=== PATIENT | male | born 1995 | race Two or more races ===

== ENCOUNTER 2024-12-27 07:32 | Inpatient (IN) ==
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
[2024-12-27] MEDS: SODIUM CHLORIDE 0.9% 1,000 ML IV ONE (08:17)
[2024-12-27 08:31] LABS: Basophils # (auto) 0.04 K/uL (0.00-0.20); Basophils % (auto) 0.7 %; Eosinophils # (auto) 0.12 K/uL (0.00-0.50); Eosinophils % (auto) 2.2 %; Hematocrit (blood only) 38.7 % (42.0-52.0); Hemoglobin 13.1 g/dl (14.0-18.0); Immature Granulocytes # (auto) 0.02 K/uL (0.01-0.20); Immature Granulocytes % (auto) 0.4 %; Lymphocytes # (auto) 0.71 K/uL (1.20-3.40); Lymphocytes % (auto) 12.9 %; Mean Corpuscular Hemoglobin 30.7 pg (25.0-34.0); Mean Corpuscular Hgb Conc 33.9 g/dL (32.0-36.0); Mean Corpuscular Volume 90.6 fL (80.0-100.0); Mean Platelet Volume 12.1 fL (9.4-12.4); Monocytes % (auto) 12.7 %; Neutrophils # (auto) 3.92 K/uL (1.40-6.50); Neutrophils % (auto) 71.1 %; Platelet Count 142 K/uL (130-400); RDW Coefficient of Variation 13.4 % (11.5-14.5); RDW Standard Deviation 44.8 fL (36.4-46.3); Red Blood Count 4.27 M/uL (4.70-6.10); White Blood Count 5.51 K/ul (4.8-10.8)
[2024-12-27 08:56] LABS: Albumin Level 4.4 gm/dl (3.4-5.0); Bilirubin,Total 1.7 mg/dl (0.2-1.0); Calcium 9.8 mg/dl (8.6-10.3); Magnesium 1.8 mg/dl (1.7-2.4); Potassium 3.9 mmol/L (3.5-5.1)
[2024-12-27 09:02] LABS: Albumin Globulin Ratio 1.1 (0.9-2); BUN Creatinine Ratio 17.5 (10-20); Globulin 3.9 gm/dl (2.5-4.0); Total Protein 8.3 gm/dl (6.0-8.3)
[2024-12-27 09:15] LABS: Appearance Urine Clear (Clear); Bilirubin Urine Negative (Negative); Blood Urine Negative (Negative); Color Urine Yellow; Glucose Urine UA Negative (Negative); Ketones Urine Negative (Negative); Leukocyte Esterase Urine Negative (Negative); Nitrite Urine Negative (Negative); Protein Urine Negative (Negative); Specific Gravity Urine 1.007 (1.000-1.030); Urobilinogen Urine Negative (Negative)
[2024-12-27 09:30] LABS: Troponin I High Sensitivity 4.9 pg/ml (0-20)
[2024-12-27] MEDS: OPTIRAY 320 125ml IV ONE (09:34)
--- NOTE | 2024-12-27 09:50 | CT Scan Report ---
ABDOMEN AND PELVIS CT WITH IV CONTRAST CT DOSE: 2370 HISTORY: abd pain, etoh withdrawal TECHNIQUE: Multiaxial CT images of the abdomen and pelvis were performed following the IV administrat ion of 120 cc of Optiray, A dose lowering technique was utilized adhering to the principles of ALARA . COMPARISON STUDY: None FINDINGS: There is motion artifact. ABDOMEN: There is mild fatty liver. Otherwise the liver, gallbladder, spleen, pancreas, and adrenal g lands are unremarkable. Kidneys show no hydronephrosis or calculi. No abdominal aortic aneurysm. Pelvis: Prostate is grossly unremarkable. Urinary bladder is mildly distended, otherwise unremarkable . There is mild retained stool. No bowel inflammation or obstruction. No free fluid, free air, or abs cess. No enlarged adenopathy. Osseous structures: No acute osseous findings. IMPRESSION: No acute findings. ACT 112: Negative or not required by law. The above report was generated using voice recognition software. It may contain grammatical, syntax o r spelling errors. Electronically signed by: Abundio Pearce M.D. 12/27/2024 9:49 AM
[2024-12-27 09:51] LABS: Amphetamines+Metham, Urine Neg (Neg); Barbiturates, Urine Neg (Neg); Benzodiazepine, Urine Neg (Neg); Cocaine, Urine Neg (Neg); Fentanyl, Urine Neg (Neg); MDMA (Ecstacy), Urine Neg (Neg); Marijuana, Urine Neg (Neg); Methadone, Urine Neg (Neg); Opiate, Urine Neg (Neg); Phencyclidine, Urine Neg (Neg)
--- NOTE | 2024-12-27 09:54 | CT Scan Report ---
CT SCAN OF THE BRAIN WITHOUT IV CONTRAST CLINICAL HISTORY: Hallucinations. TECHNIQUE: Unenhanced axial CT scan of the brain was performed from the vertex to the skull base. A dose lowering technique was utilized adhering to the principles of ALARA. FINDINGS: Brain parenchyma: No acute intracranial hemorrhage, midline shift or mass effect is present. Portillo-whi te matter differentiation is preserved. There are no extra-axial fluid collections. There are no find ings to suggest acute dural sinus thrombosis or acute territorial infarct. Ventricles, sulci, cisterns: There is no hydrocephalus. The basal cisterns are patent. Calvarium: Unremarkable. Sinuses and mastoids: The visualized paranasal sinuses are clear. The mastoid air cells are well pneu matized. Orbits: The bony orbits are grossly intact. IMPRESSION: No acute intracranial findings. ACT 112: Negative or not required by law. Electronically signed by: Nicolas Oviedo M.D. 12/27/2024 9:53 AM
--- NOTE | 2024-12-27 09:54 | CT Scan Report ---
CT angio chest PE protocol CT DOSE: 2370.83 mGy.cm HISTORY: PE, CP etoh withdrawal. TECHNIQUE: Multiple CTA images of the chest were obtained after the intravenous administration of 120 ml Optiray. Coronal and sagittal MIPS were obtained from the axial data set and were submitted for review. All measurements were obtained according to NASCET criteria. A dose lowering technique was u tilized adhering to the principles of ALARA. COMPARISON STUDY: None FINDINGS: There is no pulmonary consolidation, pleural effusion, or pneumothorax. No enlarged adenopa thy. No pericardial effusion. No thoracic aortic dissection or aneurysm. No pulmonary embolism. No ac gabrielle osseous finding seen. IMPRESSION: No acute findings. No pulmonary embolism seen. ACT 112: Negative or not required by law. The above report was generated using voice recognition software. It may contain grammatical, syntax o r spelling errors. Electronically signed by: Abundio Pearce M.D. 12/27/2024 9:53 AM
[2024-12-27 10:08] LABS: Adenovirus PCR Not Detected (NotDetected); Bordetella parapertussis PCR Not Detected (NotDetected); Bordetella pertussis PCR Not Detected (NotDetected); Chlamydia pneumoniae PCR Not Detected (NotDetected); Coronavirus 229E PCR Not Detected (NotDetected); Coronavirus CoV-2 (COVID19)PCR Not Detected (NotDetected); Coronavirus HKU1 PCR Not Detected (NotDetected); Coronavirus NL63 PCR Not Detected (NotDetected); Coronavirus OC43PCR Not Detected (NotDetected); Human Metapneumovirus PCR Not Detected (NotDetected); Influenza A PCR Not Detected (NotDetected); Influenza B PCR Not Detected (NotDetected); Mycoplasma pneumoniae PCR Not Detected (NotDetected); Parainfluenza Virus 1 PCR Not Detected (NotDetected); Parainfluenza Virus 2 PCR Not Detected (NotDetected); Parainfluenza Virus 3 PCR Not Detected (NotDetected); Parainfluenza Virus 4 PCR Not Detected (NotDetected); Respiratory Syncytial VirusPCR Not Detected (NotDetected); Rhinovirus/Enterovirus PCR Not Detected (NotDetected)
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
[2024-12-27 15:20] LABS: Ferritin 611.4 ng/ml (8-388)
[2024-12-27] MEDS ORDERED: Ativan PO Alcohol Withdrawal--Active Protocol PO PRN (16:18)
[2024-12-27] MEDS ORDERED: ONDANSETRON INJ 2 MG/ML 2 ML VIAL IV PRN (16:18)
[2024-12-27] MEDS ORDERED: LORazepam 1 MG TAB PO PRN (16:18)
[2024-12-27] MEDS ORDERED: POLYETHYLENE (MIRALAX) 17 GM PACK PO PRN (16:18)
[2024-12-27] MEDS ORDERED: ALUMINUM/MAGNESIUM SUSP 30 ML UDC PO PRN (16:18)
[2024-12-27] MEDS ORDERED: MAGNESIUM HYDROXIDE SUSP 30 ML UDC PO PRN (16:18)
[2024-12-27] MEDS ORDERED: ACETAMINOPHEN 325 MG TAB PO PRN (16:18)
[2024-12-27] MEDS: LORazepam 1 MG TAB PO PRN ×2 (18:02→23:43)
[2024-12-27] MEDS: PANTOprazole 40 MG TAB PO SCH (18:40)
[2024-12-27] MEDS: MULTIVITAMIN TAB PO SCH (18:41)
[2024-12-27] MEDS: QUEtiapine FUMARATE 25 MG TABLET PO SCH (18:41)
[2024-12-27] MEDS: FOLIC ACID 1 MG TAB PO SCH (18:41)
[2024-12-27] MEDS: THIAMINE HCL 100 MG TAB PO SCH (18:42)
[2024-12-27] MEDS: MELATONIN 3 MG TAB PO PRN (23:43)
[2024-12-28] MEDS: LORazepam 2 MG/1 ML VIAL IV ONE (02:52)
--- NOTE | 2024-12-28 03:13 | Communication Note ---
Date of Service: December 28, 2024 Was contacted by RN of patient experiencing agitation, elevated BP with diastolic > 100, tachycardia of 100-110s bpm, hallucinations, and was spitting on the persons around him and trying to chew through his cuffs. On arrival to bedside, patient found to be awake, confused, speaking but not following clear line of thought, chewing at handcuffs, and speaking to bedside chair. AWSS score at the time was 10. Ativan that was ordered prn was PO and patient had been refusing any PO meds. Before this, patient had gotten a total of 4 mg of Ativan PO. Given AWSS score, given Ativan 3 mg IV, protocol switched to IV, and patient moved to 210. On arrival to 210 an hour later, patient AWSS score was 20 and was given an additional dose of Ativan 3 mg IV per protocol. Patient with increased agitation despite BZD administration raises concern for paradoxical reaction to BZD, therefore switched to Phenobarbital. Orders for ammonia levels, vbg, cbc, cmp, pt/inr. Resident Activity Tracking Resident Involvement: Resident Care Provided Care Provided: Adult [facility] Medicine
[2024-12-28] MEDS ORDERED: Ativan IV Alcohol Withdrawal--Active Protocol IV PRN (03:37)
[2024-12-28] MEDS ORDERED: LORazepam 2 MG/1 ML VIAL IV PRN ×2 (03:37)
[2024-12-28] MEDS: LORazepam 2 MG/1 ML VIAL IV PRN (03:50)
[2024-12-28] MEDS ORDERED: PHENobarbital sodium 65 MG/ML VIAL IV STA (03:55)
[2024-12-28] MEDS ORDERED: PHENobarbital PO Alcohol Withdrawal PO STA (03:55)
[2024-12-28] MEDS ORDERED: PHENobarbital sodium 65 MG/ML VIAL IV PRN (04:10)
--- NOTE | 2024-12-28 04:17 | Communication Note ---
Date of Service: December 28, 2024 Patient received lorazepam 3mg IV @ 2:52am which did not appear to help with agitation. Reviewed chart and examined patient. Alcohol withdrawal although also some concern of benzodiazepine delirium. Reportedly last drink on . External med rec prescription of lorazepam started December 24. Advised to transfer patient to PCU and if he remains agitated will switch to phenobarbital given concern for. On transfer he was still scoring AWSS > 10 therefore he was given the prescribed protocol dose of an addition lorazepam 3mg IV. He continued to be severely agitated and trying to climb out of bed. Total lorazepam dose 10mg at this point which is below Shaila phenobarbital concern for switching of 20mg. Will start with 520mg phenobarbital IV (8.67mg/kg ideal body weight) slightly under 10mg/kg given prior lorazepam dosing. Additional two maximum 130mg IV q15m PRN doses for RASS > 0 starting 30 minutes after loading dose up to two hours. 130mg IV PRN for RASS > 0 q6h following this. PO taper order set following this. If ongoing agitation following phenobarbital will need to transfer to ICU for consideration of Precedex vs clonidine if able to take PO meds. Repeat labs ordered with ABG and ammonia to assess for alternative cause of delirium. Urine toxicology noted to be negative.
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
[2024-12-28 04:46] LABS: Base Excess VBG -3.8 mEq/L; HCO3 VBG 21 mmol/L; Oxygen Saturation VBG 96.2 %; PCO2 VBG 35 mmHg (38-50); PO2 VBG 71 mmHg; pH VBG 7.38 (7.36-7.41)
[2024-12-28 04:52] LABS: Basophils # (auto) 0.04 K/uL (0.00-0.20); Basophils % (auto) 0.6 %; Eosinophils # (auto) 0.05 K/uL (0.00-0.50); Eosinophils % (auto) 0.8 %; Hematocrit (blood only) 38.6 % (42.0-52.0); Hemoglobin 13.1 g/dl (14.0-18.0); Immature Granulocytes # (auto) 0.02 K/uL (0.01-0.20); Immature Granulocytes % (auto) 0.3 %; Lymphocytes # (auto) 0.88 K/uL (1.20-3.40); Lymphocytes % (auto) 13.2 %; Mean Corpuscular Hemoglobin 30.7 pg (25.0-34.0); Mean Corpuscular Hgb Conc 33.9 g/dL (32.0-36.0); Mean Corpuscular Volume 90.4 fL (80.0-100.0); Mean Platelet Volume 11.4 fL (9.4-12.4); Monocytes # (auto) 0.81 K/uL (0.11-0.59); Monocytes % (auto) 12.2 %; Neutrophils # (auto) 4.85 K/uL (1.40-6.50); Neutrophils % (auto) 72.9 %; Platelet Count 142 K/uL (130-400); RDW Coefficient of Variation 13.2 % (11.5-14.5); Red Blood Count 4.27 M/uL (4.70-6.10); White Blood Count 6.65 K/ul (4.8-10.8)
[2024-12-28 05:16] LABS: Albumin Level 4.9 gm/dl (3.4-5.0); BUN Creatinine Ratio 13.5 (10-20); Calcium 9.7 mg/dl (8.6-10.3); Creatinine Clr Calc Pharmacy 121.1 ml/min; Total Protein 8.7 gm/dl (6.0-8.3)
[2024-12-28 05:21] LABS: INR 1.1 (0.9-1.1); Prothrombin Time 12.3 Seconds (9.0-12.0)
[2024-12-28 06:19] LABS: Albumin Globulin Ratio 1.3 (0.9-2); Globulin 3.8 gm/dl (2.5-4.0)
[2024-12-28] MEDS ORDERED: QUEtiapine FUMARATE 25 MG TABLET PO PRN (07:30)
[2024-12-28 09:25] LABS: Base Excess VBG 3.5 mEq/L; HCO3 VBG 29 mmol/L; Oxygen Saturation VBG < 60.0 %; PCO2 VBG 47 mmHg (38-50); PO2 VBG 26 mmHg
[2024-12-28] MEDS: PHENobarbital sodium 65 MG/ML VIAL IV PRN (10:56)
[2024-12-28] MEDS: POTASSIUM CHLORIDE CRTAB 20 MEQ TABCR PO SCH (11:24)
[2024-12-28] MEDS: PHENobarbitaL 30 MG TAB PO SCH (21:12)
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
--- NOTE | 2024-12-28 22:21 | Electrocardiogram Report ---
Test Reason : Blood Pressure : */* mmHG Vent. Rate : 86 BPM Atrial Rate : 86 BPM P-R Int : 160 ms QRS Dur : 98 ms QT Int : 382 ms P-R-T Axes : 45 35 26 degrees QTcB Int : 457 ms Normal sinus rhythm Normal ECG When compared with ECG of 27-Dec-2024 07:44, No significant change was found Confirmed by Preet Brady ([id number]) on 12/28/2024 10:21:42 PM Referred By: REFERRED SELF Confirmed By: Preet Brady
[2024-12-29 07:13] LABS: Hematocrit (blood only) 38.1 % (42.0-52.0); Hemoglobin 12.6 g/dl (14.0-18.0); Mean Corpuscular Hemoglobin 30.7 pg (25.0-34.0); Mean Corpuscular Hgb Conc 33.1 g/dL (32.0-36.0); Mean Corpuscular Volume 92.9 fL (80.0-100.0); Mean Platelet Volume 11.8 fL (9.4-12.4); Platelet Count 146 K/uL (130-400); RDW Coefficient of Variation 13.5 % (11.5-14.5); RDW Standard Deviation 46.4 fL (36.4-46.3); White Blood Count 5.21 K/ul (4.8-10.8)
[2024-12-29 07:40] LABS: Albumin Level 4.3 gm/dl (3.4-5.0); Bilirubin Direct 0.4 mg/dl (0-0.2); Bilirubin,Total 1.7 mg/dl (0.2-1.0); Total Protein 8.2 gm/dl (6.0-8.3)
[2024-12-29 07:59] LABS: BUN Creatinine Ratio 18.2 (10-20); Calcium 9.5 mg/dl (8.6-10.3); Creatinine Clr Calc Pharmacy 135.8 ml/min; Potassium 3.8 mmol/L (3.5-5.1)
[2024-12-29 13:13] LABS: Chlam trach RNA(Genit,Ureth,Ur Not Detected (NotDetected); GC(Neis gon)RNA(Genit,Ureth,Ur Not Detected (NotDetected)
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
[2024-12-29] MEDS: PHENobarbitaL 30 MG TAB PO SCH (22:24)
--- NOTE | 2024-12-29 22:47 | Electrocardiogram Report ---
Test Reason : Blood Pressure : */* mmHG Vent. Rate : 67 BPM Atrial Rate : 67 BPM P-R Int : 162 ms QRS Dur : 84 ms QT Int : 396 ms P-R-T Axes : 25 30 11 degrees QTcB Int : 418 ms Normal sinus rhythm Normal ECG No previous ECGs available Confirmed by Preet Brady ([id number]) on 12/29/2024 10:47:07 PM Referred By: REFERRED SELF Confirmed By: Preet Brady
[2024-12-30 06:53] LABS: Basophils # (auto) 0.05 K/uL (0.00-0.20); Eosinophils # (auto) 0.16 K/uL (0.00-0.50); Eosinophils % (auto) 3.1 %; Hematocrit (blood only) 36.4 % (42.0-52.0); Hemoglobin 12.4 g/dl (14.0-18.0); Immature Granulocytes # (auto) 0.01 K/uL (0.01-0.20); Immature Granulocytes % (auto) 0.2 %; Lymphocytes # (auto) 1.15 K/uL (1.20-3.40); Lymphocytes % (auto) 22.2 %; Mean Corpuscular Hemoglobin 31.5 pg (25.0-34.0); Mean Corpuscular Hgb Conc 34.1 g/dL (32.0-36.0); Mean Corpuscular Volume 92.4 fL (80.0-100.0); Mean Platelet Volume 11.9 fL (9.4-12.4); Monocytes # (auto) 0.91 K/uL (0.11-0.59); Monocytes % (auto) 17.6 %; Neutrophils % (auto) 55.9 %; Platelet Count 136 K/uL (130-400); RDW Coefficient of Variation 13.4 % (11.5-14.5); RDW Standard Deviation 45.9 fL (36.4-46.3); Red Blood Count 3.94 M/uL (4.70-6.10); White Blood Count 5.18 K/ul (4.8-10.8)
[2024-12-30 07:24] LABS: Albumin Level 4.2 gm/dl (3.4-5.0); BUN Creatinine Ratio 14.9 (10-20); Bilirubin Direct 0.3 mg/dl (0-0.2); Calcium 9.3 mg/dl (8.6-10.3); Creatinine Clr Calc Pharmacy 133.8 ml/min; Magnesium 1.8 mg/dl (1.7-2.4)
[2024-12-30 08:11] VITALS: BP 109/72; RESP 19; TEMP 98.2; O2SAT 98
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
[2024-12-30 12:47] VITALS: PULSE 60
[2024-12-31] MEDS ORDERED: PHENobarbitaL 30 MG TAB PO SCH (10:00)
== END 2024-12-30 13:11 | DRG 897 ==
LOC: ED 07:32 → EDINP 07:32 → SUATTDRO 13:44 → 2W 16:18 → 2E 12-28 03:46 → SUATTDRO 12-28 21:38
DX: E87.6 Hypokalemia; R10.9 Unspecified abdominal pain; R44.1 Visual hallucinations; K70.10 Alcoholic hepatitis without ascites; Z11.52 Encounter for screening for COVID-19; R07.9 Chest pain, unspecified; R30.0 Dysuria; D64.9 Anemia, unspecified; F10.231 Alcohol dependence with withdrawal delirium